=== PATIENT | male | born 2000 | race Two or more races ===

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

== ENCOUNTER 2018-04-15 18:53 | Emergency (ER) | payer OTHER ==
[2018-04-15 19:00] VITALS: BP 125/74; PULSE 86; RESP 20; TEMP 98.1
--- NOTE | 2018-04-15 19:25 | ED ---
Wound/Laceration HPI - General Chief Complaint: Wound/Laceration Stated Complaint: RT MIDDLE AND RING FINGER LAC Time Seen by Provider: 04/15/18 19:05 Source: patient, RN notes reviewed Mode of arrival: ambulatory Limitations: no limitations - History of Present Illness Initial Comments: This is a 17-year-old male who presents to the emergency department with chief complaint of right hand lacerations. Patient states that 30 minutes prior to arrival he was playing basketball. He states that he went up to dunk the basketball and held onto the rim. He states that the room then lacerated his middle finger and ring finger on the right hand. Patient states he is up-to- date with his tetanus vaccination; he received this in 2017. Patient denies any other injuries or trauma. Denies fever, chills, chest pain, shortness of breath, abdominal pain, nausea or vomiting, constipation or diarrhea, dysuria or hematuria, numbness or tingling, headache or vision changes. - Related Data Home Medications Medication Instructions Recorded Confirmed No Known Home Medications [No 04/15/18 04/15/18 Known Home Medications] Allergies Allergy/AdvReac Type Severity Reaction Status Date / Time No Known Allergies Allergy Verified 04/15/18 19:01 Review of Systems ROS Statement: Those systems with pertinent positive or pertinent negative responses have been documented in the HPI. ROS Other: All systems not noted in ROS Statement are negative. Past Medical History Past Medical History: No Reported History History of Any Multi-Drug Resistant Organisms: None Reported Past Surgical History: No Surgical Hx Reported Past Psychological History: No Psychological Hx Reported Smoking Status: Never smoker Past Alcohol Use History: None Reported Past Drug Use History: None Reported General Exam - General Exam Comments Initial Comments: General: Awake and alert, well-developed; in no apparent distress. HEENT: Head atraumatic, normocephalic. Pupils are equal, round and reactive to light. Extraocular movements intact. Oropharynx moist without erythema or exudate. Neck: Supple. Normal ROM. Cardiovascular: Regular rate and rhythm. No murmurs, rubs or gallops. Chest symmetrical. Respiratory: Lungs clear to auscultation bilaterally. No wheezes, rales or rhonchi. Normal respiratory effort with no use of accessory muscles. Musculoskeletal: Normal ROM, no tenderness bilateral upper and lower extremities. Sensation is intact. Radial pulses are 2+ equal and palpable bilaterally. Skin: [place], warm and dry. Small, superficial skin avulsion to the proximal palmar right fourth finger. Superficial flap-like avulsion laceration to the proximal palmar surface right third finger. Deep structures are intact. No active bleeding. Neurological: Alert and oriented x3. CN II-XII grossly intact. Speech is fluent and answers are appropriate. No focal neuro deficits. Psychiatric: Normal mood and affect. No overt signs of depression or anxiety noted. Limitations: no limitations Course Vital Signs 04/15/18 18:58 Temperature 98.1 F Pulse Rate 86 Respiratory 20 Rate Blood Pressure 125/74 O2 Sat by Pulse 96 Oximetry Medical Decision Making - Medical Decision Making This is a 17-year-old male who presents to the emergency department with chief complaint of lacerations to the right hand. Patient sustained a small superficial avulsion to the right fourth digit and a flap-like, superficial laceration to the right third digit. Deep structures are intact. No sutures are warranted. Patient has normal range of motion and is neurovascularly intact. Wounds were cleansed with iodine and warm water. Bandages were placed. Return parameters were discussed. Patient states he is up-to-date with tetanus vaccination. Vital signs are stable and he is in no acute distress. He will be discharged home at this time. All questions answered. Disposition Clinical Impression: Laceration Disposition: HOME SELF-CARE Condition: Good Instructions: Finger Laceration (ED) Additional Instructions: Please follow up with primary care provider within 1-2 days. Return to emergency department if symptoms should worsen or any concerns arise. Is patient prescribed a controlled substance at d/c from ED?: No Referrals: Cosmo Carpio MD [Primary Care Provider] - 1-2 days Time of Disposition: 19:26
== END 2018-04-15 19:38 | disposition home or self-care (01) ==
LOC: EC 18:53
DX: S61.212A Laceration without foreign body of right middle finger without damage to nail, initial encounter (principal); S61.214A Laceration without foreign body of right ring finger without damage to nail, initial encounter; W45.8XXA Other foreign body or object entering through skin, initial encounter; Y93.67 Activity, basketball; Y92.89 Other specified places as the place of occurrence of the external cause
CPT/HCPCS: 99282

== ENCOUNTER → 2018-08-24 | Outpatient (CLI) | payer BC, OTHER ==
--- NOTE | 2018-08-24 13:36 | US ---
EXAMINATION TYPE: US kidneys/renal and bladder DATE OF EXAM: 08/24/2018 COMPARISON: NONE CLINICAL HISTORY: Lower Back Pain M54.5. left side pain. Macroscopic hematuria. EXAM MEASUREMENTS: Right Kidney: 9.5 x 5.5 x 4.5 cm Left Kidney: 9.4 x 5.5 x 6.1 cm Right Kidney: No hydronephrosis or masses seen Left Kidney: Lower pole echogenic focus with shadow= 0.6 x 0.5 cm Bladder: mildly distended. Urinary bladder wall thickening diffusely, possibly related to incomplete distention. This is greatest posteriorly. Bilateral Jets not seen There is no evidence for hydronephrosis at this point in time. No masses are identified. The urina ry bladder is anechoic. Bilateral ureteral jets are seen. IMPRESSION: 1. Solitary nonobstructing 6 mm left lower pole renal calculus. 2. Circumferential urinary bladder wall thickening greatest posteriorly. This could relate to incompl ete distention or cystitis. Correlate with urinalysis. Given the macroscopic hematuria CT urogram cou ld also be considered.
== END | disposition home or self-care (01) ==
LOC: RADUSWWP 12:46
PROVIDERS: ATTEND Family Medicine
DX: N20.0 Calculus of kidney (principal); N32.89 Other specified disorders of bladder; M54.5 Low back pain
CPT/HCPCS: 76770

== ENCOUNTER → 2018-09-14 | Outpatient (CLI) | payer OTHER ==
--- NOTE | 2018-09-14 10:27 | US ---
EXAMINATION TYPE: US kidneys/renal and bladder DATE OF EXAM: 09/14/2018 COMPARISON: 08/24/2018 CLINICAL HISTORY: N20.0 kidney stones. EXAM MEASUREMENTS: Right Kidney: 9.3 x 4.5 x 5.1 cm Left Kidney: 9.4 x 5.5 x 4.0 cm Post Void Residual Volume: 1.1 mL Right Kidney: No hydronephrosis or masses seen Left Kidney: left calculi lower pole 0.6 cm Bladder: thick walled 0.5 cm Bilateral Jets seen: No Normal Post Void Residual: Yes There is no evidence for hydronephrosis at this point in time. No nephrolithiasis is seen. No benny s are identified. The urinary bladder is anechoic. Bilateral ureteral jets are seen. IMPRESSION: Solitary left lower pole 6 mm renal calculus is redemonstrated unchanged from the prior. No hydroneph rosis or nephrolithiasis. Again there is urinary bladder wall thickening that could relate to incompl ete distention or cystitis. Correlation with urinalysis is again recommended.
== END | disposition home or self-care (01) ==
LOC: RADUSWWP 08:50
PROVIDERS: ATTEND Family Medicine
DX: N20.0 Calculus of kidney (principal); N32.89 Other specified disorders of bladder
CPT/HCPCS: 76770

== ENCOUNTER → 2019-04-13 | Outpatient (CLI) | payer OTHER ==
--- NOTE | 2019-04-13 15:12 | US ---
EXAMINATION TYPE: US kidneys/renal and bladder DATE OF EXAM: 04/13/2019 COMPARISON: 09/14/2018 CLINICAL HISTORY: M54.5 Lower back pain. Pt states back pain, H/O renal calculi on left EXAM MEASUREMENTS: Right Kidney: 10.1 x 4.6 x 5.9 cm Left Kidney: 10.2 x 6.0 x 5.8 cm Right Kidney: No evidence of hydronephrosis, possible small calculi at mid/lower pole 3mm and 5mm in size Left Kidney: No evidence of hydronephrosis, possible 2 calculi at lower pole, 10mm and 6mm in size/ a dditional possible calculi at upper pole 3mm in size Bladder: wnl Bilateral Jets seen: No IMPRESSION: 1. Probable small bilateral renal calculi with no diagnostic evidence of hydronephrosis.
== END | disposition home or self-care (01) ==
LOC: RADUSWWP 14:29
PROVIDERS: ATTEND Family Medicine
DX: M54.5 Low back pain (principal)
CPT/HCPCS: 76770

== ENCOUNTER 2019-06-07 08:21 | Emergency (ER) | payer OTHER ==
[2019-06-07] MEDS ORDERED: ONDANSETRON 4 MG/2 ML VIAL IVP STA (08:30)
[2019-06-07] MEDS ORDERED: SODIUM CHLORIDE 0.9% 1,000 ML IV STA ×2 (08:30)
[2019-06-07] MEDS ORDERED: KETOROLAC 30 MG/ML 1 ML VIAL IVP STA (08:30)
[2019-06-07] MEDS ORDERED: MORPHINE SULFATE 4 MG/ML SYRINGE IVP STA (08:38)
--- NOTE | 2019-06-07 08:40 | ED ---
Back Pain HPI - General Chief Complaint: Back Pain/Injury Stated Complaint: Back Pain/Blood in urine Time Seen by Provider: 06/07/19 08:29 Source: patient, RN notes reviewed, old records reviewed Limitations: no limitations - History of Present Illness Initial Comments: Patient is a 18-year-old male who presents emergency department today with onset of left-sided flank pain today. Patient reports he woke up with the pain. Patient states had history of kidney stones before and feels like this is a similar kidney stone. He does report noticing some blood in his urine. Patient reports an episode of vomiting today. Denies any fevers or chills. - Related Data Previous Rx's Medication Instructions Recorded HYDROcodone/APAP 5-325MG [[place] 1 tab PO Q6HR PRN 3 Days #12 tab 06/07/19 5-325] Ketorolac [Toradol] 10 mg PO TID #15 tab 06/07/19 Ondansetron Odt [Zofran Odt] 4 mg PO Q8HR PRN #12 tab 06/07/19 Tamsulosin [Flomax] 0.4 mg PO DAILY #7 cap 06/07/19 Allergies Allergy/AdvReac Type Severity Reaction Status Date / Time No Known Allergies Allergy Verified 06/07/19 08:41 Review of Systems ROS Statement: Those systems with pertinent positive or pertinent negative responses have been documented in the HPI. ROS Other: All systems not noted in ROS Statement are negative. Past Medical History Past Medical History: No Reported History Additional Past Medical History / Comment(s): kidney stone History of Any Multi-Drug Resistant Organisms: None Reported Past Surgical History: No Surgical Hx Reported Past Psychological History: No Psychological Hx Reported Smoking Status: Never smoker Past Alcohol Use History: None Reported Past Drug Use History: None Reported General Exam - General Exam Comments Initial Comments: This is a 18-year-old male. Alert and oriented 3. No significant distress. Limitations: no limitations General appearance: alert, in no apparent distress Head exam: Present: atraumatic Eye exam: Present: normal appearance, PERRL, EOMI. Absent: scleral icterus, conjunctival injection, periorbital swelling ENT exam: Present: normal exam, mucous membranes moist Neck exam: Present: normal inspection. Absent: tenderness, meningismus, lymphadenopathy Respiratory exam: Present: normal lung sounds bilaterally. Absent: respiratory distress, wheezes, rales, rhonchi, stridor Cardiovascular Exam: Present: regular rate, normal rhythm, normal heart sounds. Absent: systolic murmur, diastolic murmur, rubs, gallop, clicks GI/Abdominal exam: Present: soft Extremities exam: Present: normal inspection, full ROM, normal capillary refill. Absent: tenderness, pedal edema, joint swelling, calf tenderness Back exam: Present: normal inspection, CVA tenderness (L) Neurological exam: Present: alert, oriented X3, CN II-XII intact Psychiatric exam: Present: normal affect, normal mood Skin exam: Present: warm, dry, intact, normal color. Absent: rash Course Vital Signs 06/07/19 08:25 Temperature 97.6 F Pulse Rate 80 Respiratory 18 Rate Blood Pressure 112/73 O2 Sat by Pulse 97 Oximetry Medical Decision Making - Medical Decision Making This is a 18-year-old male presents today for evaluation with complaints of left-sided back pain, blood in urine. Patient said history of kidney since the past and similar to this complaint. Patient has no blood cells in his urine. Blood work was reviewed and unremarkable. I reviewed patient's previous ultrasound that showed multiple bilateral stones. Large measuring 1 cm and 6 cm within the sella the left kidney. X-ray shows evidence of retained left renal stones measuring 6 elevated to 10 mm likely related from his previous ultrasounds. Patient is likely passing a small stone at this time. Discussed to avoid further imaging with known stones and patient cbe treated. Discussed the likelihood just treat the Patient with Flomax Toradol and [place] and Zofran. Patient will be discharged at this time I discussed case with Dr. Bright. - Lab Data Result diagrams: 06/07/19 08:40 06/07/19 08:40 Lab Results 06/07/19 06/07/19 06/07/19 Range/Units 08:40 08:40 08:40 WBC 6.7 (4.0-11.0) k/uL RBC 4.94 (4.30-5.90) m/uL Hgb 14.9 (13.0-17.5) gm/dL Hct 45.1 (39.0-53.0) % MCV 91.2 (80.0-100.0) fL MCH 30.1 (25.0-35.0) pg MCHC 33.0 (31.0-37.0) g/dL RDW 12.7 (11.5-15.5) % Plt Count 237 (150-450) k/uL Neutrophils % 45 % Lymphocytes % 44 % Monocytes % 6 % Eosinophils % 2 % Basophils % 0 % Neutrophils # 3.0 (1.3-7.7) k/uL Lymphocytes # 2.9 (1.0-4.8) k/uL Monocytes # 0.4 (0-1.0) k/uL Eosinophils # 0.1 (0-0.7) k/uL Basophils # 0.0 (0-0.2) k/uL PT (9.0-12.0) sec INR (<1.2) APTT (22.0-30.0) sec Sodium 144 (137-145) mmol/L Potassium 4.5 (3.5-5.1) mmol/L Chloride 105 (98-107) mmol/L Carbon Dioxide 27 (22-30) mmol/L Anion Gap 12 mmol/L BUN 17 (9-20) mg/dL Creatinine 1.11 (0.66-1.25) mg/dL Est GFR (CKD-EPI)AfAm >90 (>60 ml/min/1.73 sqM) Est GFR (CKD-EPI)NonAf >90 (>60 ml/min/1.73 sqM) Glucose 92 (74-99) mg/dL Calcium 9.7 (8.4-10.2) mg/dL Total Bilirubin 0.6 (0.2-1.3) mg/dL AST 28 (17-59) U/L ALT 32 (21-72) U/L Alkaline Phosphatase 112 (38-126) U/L Total Protein 8.2 (6.3-8.2) g/dL Albumin 4.8 (3.5-5.0) g/dL Amylase 92 (30-110) U/L Lipase 37 (23-300) U/L Urine Color Yellow Urine Appearance Clear (Clear) Urine pH 6.0 (5.0-8.0) Ur Specific [place] 1.020 (1.001-1.035) Urine Protein Negative (Negative) Urine Glucose (UA) Negative (Negative) Urine Ketones Negative (Negative) Urine Blood Small H (Negative) Urine Nitrite Negative (Negative) Urine Bilirubin Negative (Negative) Urine Urobilinogen <2.0 (<2.0) mg/dL Ur Leukocyte Esterase Negative (Negative) Urine RBC 37 H (0-5) /hpf Urine WBC 1 (0-5) /hpf Urine Mucus Rare H (None) /hpf 06/07/19 Range/Units 08:40 WBC (4.0-11.0) k/uL RBC (4.30-5.90) m/uL Hgb (13.0-17.5) gm/dL Hct (39.0-53.0) % MCV (80.0-100.0) fL MCH (25.0-35.0) pg MCHC (31.0-37.0) g/dL RDW (11.5-15.5) % Plt Count (150-450) k/uL Neutrophils % % Lymphocytes % % Monocytes % % Eosinophils % % Basophils % % Neutrophils # (1.3-7.7) k/uL Lymphocytes # (1.0-4.8) k/uL Monocytes # (0-1.0) k/uL Eosinophils # (0-0.7) k/uL Basophils # (0-0.2) k/uL PT 10.1 (9.0-12.0) sec INR 0.9 (<1.2) APTT 27.4 (22.0-30.0) sec Sodium (137-145) mmol/L Potassium (3.5-5.1) mmol/L Chloride (98-107) mmol/L Carbon Dioxide (22-30) mmol/L Anion Gap mmol/L BUN (9-20) mg/dL Creatinine (0.66-1.25) mg/dL Est GFR (CKD-EPI)AfAm (>60 ml/min/1.73 sqM) Est GFR (CKD-EPI)NonAf (>60 ml/min/1.73 sqM) Glucose (74-99) mg/dL Calcium (8.4-10.2) mg/dL Total Bilirubin (0.2-1.3) mg/dL AST (17-59) U/L ALT (21-72) U/L Alkaline Phosphatase (38-126) U/L Total Protein (6.3-8.2) g/dL Albumin (3.5-5.0) g/dL Amylase (30-110) U/L Lipase (23-300) U/L Urine Color Urine Appearance (Clear) Urine pH (5.0-8.0) Ur Specific [place] (1.001-1.035) Urine Protein (Negative) Urine Glucose (UA) (Negative) Urine Ketones (Negative) Urine Blood (Negative) Urine Nitrite (Negative) Urine Bilirubin (Negative) Urine Urobilinogen (<2.0) mg/dL Ur Leukocyte Esterase (Negative) Urine RBC (0-5) /hpf Urine WBC (0-5) /hpf Urine Mucus (None) /hpf - Radiology Data Radiology results: report reviewed Renal colliculi measuring 6 mm and 4 mm overlying the left renal shadow however no code by seen along the courses of the ureters. Moderate degree of chronic stasis overall nonobjective bowel gas pattern. Level scoliosis of the lumbar spine. Disposition Clinical Impression: Kidney stone on left side Disposition: HOME SELF-CARE Condition: Good Instructions (If sedation given, give patient instructions): Ureteral Stones (ED) Additional Instructions: Patient is to rest, increase her fluid intake. Take the medications as prescribed. Medications and to [facility] pharmacy. Return to the emergency department if any alarming signs or symptoms occur. Prescriptions: Tamsulosin [Flomax] 0.4 mg PO DAILY #7 cap HYDROcodone/APAP 5-325MG [[place] 5-325] 1 tab PO Q6HR PRN 3 Days #12 tab PRN Reason: Pain Ketorolac [Toradol] 10 mg PO TID #15 tab Ondansetron Odt [Zofran Odt] 4 mg PO Q8HR PRN #12 tab PRN Reason: Nausea Is patient prescribed a controlled substance at d/c from ED?: Yes If prescribed controlled substance>3 days was MAPS reviewed?: Prescribed <3 Days If opioid is for acute pain is fill amount 7 days or less?: Yes If Rx opioid, was Start Talking consent form obtained?: Yes Referrals: Cosmo Carpio MD [Primary Care Provider] - 1-2 days Time of Disposition: 09:28
--- NOTE | 2019-06-07 08:53 | XR ---
EXAMINATION TYPE: XR KUB DATE OF EXAM: 06/07/2019 8:44 AM CLINICAL HISTORY: Flank pain with history of left-sided nephrolithiasis TECHNIQUE: Single upright image of the abdomen is obtained. COMPARISON: 12/23/2007 FINDINGS: There are 6 mm and 4 mm calculi overlying the left renal shadow. There is a levoscoliosis o f the lumbar spine. No suspicious calcifications are seen within the medial abdomen overlying the cou rses of the ureters or the psoas musculature. Lung bases are well aerated. Moderate degree colonic fe mila stasis. Osseous structures are grossly intact. No pneumoperitoneum seen. IMPRESSION: 1. Renal calculi measuring 6 mm and 4 mm overlying the left renal shadow however no calculi are seen along the courses of the ureters. 2. Moderate degree colonic fecal stasis in an overall nonobstructive bowel gas pattern. 3. Levoscoliosis of the lumbar spine.
[2019-06-07 08:57] LABS: Basophils % (A) 0 %; Eosinophils # (A) 0.1 k/uL (0-0.7); Eosinophils % (A) 2 %; HCT 45.1 % (39.0-53.0); HGB 14.9 gm/dL (13.0-17.5); Lymphocytes # (A) 2.9 k/uL (1.0-4.8); Lymphocytes % (A) 44 %; MCH 30.1 pg (25.0-35.0); MCV 91.2 fL (80.0-100.0); Mean Platelet Volume 7.1; Monocytes # (A) 0.4 k/uL (0-1.0); Monocytes % (A) 6 %; Neutrophils % (A) 45 %; Platelet Count 237 k/uL (150-450); RBC 4.94 m/uL (4.30-5.90); RDW 12.7 % (11.5-15.5); WBC 6.7 k/uL (4.0-11.0)
[2019-06-07 09:09] LABS: ALT 32 U/L (21-72); AST 28 U/L (17-59); African American GFR (CKD) >90 (>60 ml/min/1.73 sqM); Albumin 4.8 g/dL (3.5-5.0); Alkaline Phosphatase 112 U/L (38-126); Amylase 92 U/L (30-110); Anion Gap 12 mmol/L; Blood Urea Nitrogen 17 mg/dL (9-20); Calcium 9.7 mg/dL (8.4-10.2); Carbon Dioxide 27 mmol/L (22-30); Chloride 105 mmol/L (98-107); Glucose 92 mg/dL (74-99); Potassium 4.5 mmol/L (3.5-5.1); Sodium 144 mmol/L (137-145); Total Bilirubin 0.6 mg/dL (0.2-1.3); Total Protein 8.2 g/dL (6.3-8.2)
[2019-06-07 09:13] LABS: INR 0.9 (<1.2); Partial Thromboplastin Time 27.4 sec (22.0-30.0); Prothrombin Time 10.1 sec (9.0-12.0)
[2019-06-07 09:17] LABS: Appearance,Urine Clear (Clear); Bilirubin,Urine Negative (Negative); Blood,Urine Small (Negative); Color,Urine Yellow; Glucose,Urine (UA) Negative (Negative); Ketones,Urine Negative (Negative); Leukocyte Esterase,Urine Negative (Negative); Mucus,Urine Rare /hpf; Nitrite,Urine Negative (Negative); Protein,Urine Negative (Negative); RBC,Urine 37 /hpf (0-5); Urobilinogen,Urine <2.0 mg/dL (<2.0); WBC,Urine 1 /hpf (0-5)
[2019-06-07 09:43] VITALS: BP 136/74; PULSE 74; RESP 16; TEMP 98
== END 2019-06-07 09:40 | disposition home or self-care (01) ==
LOC: EC 08:21
DX: N20.0 Calculus of kidney (principal)
CPT/HCPCS: 36415; 80053; 82150; 83690; 85025; 85610; 85730; 81001; 87086; 74018; 99284; 96374; 96375 ×2; 96361; J2270; J2405; J1885

== ENCOUNTER → 2019-07-08 | Outpatient (CLI) | payer OTHER ==
[2019-07-08 15:34] LABS: Basophils % (A) 1 %; Eosinophils # (A) 0.1 k/uL (0-0.7); Eosinophils % (A) 1 %; HCT 41.7 % (39.0-53.0); HGB 13.9 gm/dL (13.0-17.5); Lymphocytes # (A) 2.3 k/uL (1.0-4.8); Lymphocytes % (A) 29 %; MCH 30.1 pg (25.0-35.0); MCHC 33.3 g/dL (31.0-37.0); MCV 90.4 fL (80.0-100.0); Mean Platelet Volume 7.3; Monocytes # (A) 0.5 k/uL (0-1.0); Monocytes % (A) 6 %; Neutrophils # (A) 4.7 k/uL (1.3-7.7); Neutrophils % (A) 61 %; Platelet Count 228 k/uL (150-450); RBC 4.61 m/uL (4.30-5.90); RDW 14.3 % (11.5-15.5); WBC 7.7 k/uL (4.0-11.0)
[2019-07-08 15:52] LABS: African American GFR (CKD) >90 (>60 ml/min/1.73 sqM); Blood Urea Nitrogen 17 mg/dL (9-20); Non-African American GFR(CKD) >90 (>60 ml/min/1.73 sqM)
== END | disposition home or self-care (01) ==
LOC: LABPAT 14:36
PROVIDERS: ATTEND Urology
DX: Z01.812 Encounter for preprocedural laboratory examination (principal); N20.0 Calculus of kidney
CPT/HCPCS: 36415; 82565; 84520; 85025

== ENCOUNTER 2019-07-11 10:16 | Day surgery (SDC) | payer OTHER ==
--- NOTE | 2019-07-10 11:16 | P.GSHP ---
History of Present Illness H&P Date: 07/10/19 Chief Complaint: Left flank pain secondary to left renal calculi The patient is a 18-year-old male with a history of intermittent left flank pain and gross hematuria for over one year. Renal ultrasound in 08/12 and again in 09/12 suggested nonobstructive calculi in the lower pole of the left kidney. Renal ultrasound in 04/13 showed at least 2 calculi in the lower pole of the left kidney. KUB on 06/07/2019 showed a 3-4 mm calculus and a 6-7 mm calculus in the lower pole. The patient continues to have intermittent left flank pain and gross hematuria. He was seen by me on 07/08. I reviewed his radiographic studies with him and discussed treatment options for his left renal calculi. I reviewed further observation, ureteroscopy with lithotripsty and ESWL The patient wishes to proceed with ESWL treatment. Patient has never actually passed a calculus. He has no history of urinary tract infection. There is no family history of urolithiasis. - Constitutional Constitutional: Denies chills, Denies fever - Cardiovascular Cardiovascular: Denies rapid heart beat, Denies shortness of breath - Respiratory Respiratory: Denies cough, Denies wheezing - Gastrointestinal Gastrointestinal: Reports as per HPI, Denies constipation - Genitourinary (Male) Genitourinary: Reports as per HPI Past Medical History Past Medical History: No Reported History Additional Past Medical History / Comment(s): kidney stone History of Any Multi-Drug Resistant Organisms: None Reported Past Surgical History: No Surgical Hx Reported Past Psychological History: No Psychological Hx Reported Smoking Status: Never smoker Past Alcohol Use History: None Reported Past Drug Use History: None Reported Medications and Allergies Home Medications Medication Instructions Recorded Confirmed Type HYDROcodone/APAP 5-325MG [[place] 1 tab PO Q6HR PRN 3 Days #12 tab 06/07/19 Rx 5-325] Ketorolac [Toradol] 10 mg PO TID #15 tab 06/07/19 Rx Ondansetron Odt [Zofran Odt] 4 mg PO Q8HR PRN #12 tab 06/07/19 Rx Tamsulosin [Flomax] 0.4 mg PO DAILY #7 cap 06/07/19 Rx Allergies Allergy/AdvReac Type Severity Reaction Status Date / Time No Known Allergies Allergy Verified 06/07/19 08:41 Surgical - Exam - General well developed, well nourished, no distress - ENT no hearing loss - Neck no masses, no lymphadectomy - Respiratory clear to auscultation - Cardiovascular Rhythm: regular Abnormal Heart Sounds: no systolic murmur, no diastolic murmur - Abdomen Abdomen: soft, non tender, no organomegaly - Genitourinary normal penis with no external lesions, testicles non-tender Assessment and Plan (1) Renal calculus, left Narrative/Plan: The patient will undergo ESWL treatment of his left renal calculi performed by Dr. Tapia. He is aware of the operative risks which include anesthesia, intrarenal or perinephric bleeding, inability to fragment the calculi, ureteral obstruction secondary to a calculus fragment and persistent calculi fragments in the lower pole the kidney despite successful fragmentation. Status: Acute Code(s): N20.0 - CALCULUS OF KIDNEY SNOMED Code(s): 40223107
[~2019-07-11 10:16] MED LIST: LACTATED RINGERS 1,000 ML IV SCH; LIDOCAINE 1% 20 ML VIAL (10MG/ML) FOR IV START INTRADERMA PRN; Pre Op ABX Message 1 EACH MISC MISCELLANE ONE
[2019-07-11 10:49] VITALS: RESP 16
[2019-07-11 11:14] VITALS: BMI 26.6
--- NOTE | 2019-07-11 11:14 | XR ---
EXAMINATION TYPE: XR KUB DATE OF EXAM: 07/11/2019 CLINICAL DATA: 18-year-old male preoperative for lithotripsy, [facility] COMPARISON: 06/07/2019 FINDINGS: Nonobstructive bowel gas pattern. Mild overall stool burden. Phlebolith left hemipelvis. Redemonstrat ed 2 calcifications left mid abdomen measuring 8 mm and 4 mm. IMPRESSION: Left-sided nephrolithiasis measuring 8 mm and 4 mm. Calcification in the left side of the pelvis like ly represents a phlebolith.
[2019-07-11] MEDS ORDERED: PROPOFOL 10 MG/ML 20 ML VIAL IV ONE (12:30)
[2019-07-11] MEDS ORDERED: MIDAZOLAM 2 MG/2 ML VIAL ONE (12:30)
[2019-07-11] MEDS ORDERED: fentaNYL (PF) 50 MCG/ML 2 ML AMP ONE (12:30)
--- NOTE | 2019-07-11 13:11 | P.OP ---
Date of Procedure: 07/11/19 Preoperative Diagnosis: Left renal calculi Postoperative Diagnosis: Same Procedure(s) Performed: Left extracorporeal shockwave lithotripsy (ESWL) Anesthesia: TRAVIS Surgeon: Geraldo Tapia Estimated Blood Loss (ml): 0 IV fluids (ml): 400 Pathology: none sent Condition: stable Disposition: PACU Indications for Procedure: The patient is a 18-year-old male with a history of intermittent left flank pain and gross hematuria for over one year. Renal ultrasound in fall 2017 suggested non-obstructive calculi in the lower pole of the left kidney. Renal ultrasound in March 2019 showed at least 2 calculi in the lower pole of the left kidney. KUB on 06/07/2019 showed a 3-4 mm calculus and a 6-7 mm calculus in the lower pole. The patient continues to have intermittent left flank pain and gross hematuria. Alternative treatment options for his left renal calculi were reviewed with him, including continued observation, ureteroscopy with lithotripsty, and ESWL The patient wishes to proceed with ESWL treatment. Patient has never actually passed a calculus. He has no history of urinary tract infection. There is no family history of urolithiasis. Preoperative KUB x-ray reveals 2 left lower pole renal calculi, measuring 4 and 8 mm. Operative Findings: Excellent fragmentation of both calculi. Description of Procedure: The patient was taken to the operating room and placed on the Dornier Compact Delta II lithotripter in the supine position. The calculi were seen on biplanar fluoroscopy. Once the patient was properly positioned and sedated, lithotripsy was performed. The energy level was gradually increased per protocol, to an energy level of 5. After 200 shocks were administered, a 2 minute pause was instituted per protocol. After fragmenting the larger of the 2 calculi, the patient was repositioned and the smaller calculus was treated. A total of 1500 shocks were given at a rate of 80 shocks per minute. Fluoroscopy was utilized at a minimum to ensure proper positioning and determine the treatment status. The calculi were no longer seen at the completion of the procedure, consistent with fragmentation. The patient tolerated the procedure well was taken to the recovery room in stable condition. Instructions were given to strain the urine, and the patient will follow-up within one week.
[2019-07-11 13:37] VITALS: TEMP 97.1
[2019-07-11 14:37] VITALS: BP 124/64; PULSE 75
== END 2019-07-11 15:10 | disposition home or self-care (01) ==
LOC: ORWHC2ENDO 10:16
PROVIDERS: ATTEND Urology
DX: N20.0 Calculus of kidney (principal); Z79.891 Long term (current) use of opiate analgesic; Z79.899 Other long term (current) drug therapy
CPT/HCPCS: 74018; 50590; J2250; J3010; J2704

== ENCOUNTER → 2020-05-31 | Outpatient (CLI) | payer OTHER ==
--- NOTE | 2020-05-31 09:57 | MR ---
EXAMINATION TYPE: MR brain wo/w con DATE OF EXAM: 05/31/2020 COMPARISON: None HISTORY: Left arm shaking, Numbness lasted about a week. TECHNIQUE: Multiplanar, multisequence images of the brain and brainstem is performed without and with IV contras t, utilizing 9.5 mL intravenous Gadavist . FINDINGS: Diffusion weighted images demonstrate no evidence of a recent infarct or other diffusion ab normality. There is no extra-axial fluid collection or significant white matter signal abnormality. The ventricular system and cisternal spaces are normal in size and appearance. The brain volume is age appropriate. Midline structures demonstrate normal morphology. The craniocervical junction appears within normal limits. Post contrast images demonstrate no abnormal enhancement. The dural venous sinuses appear pa tent. Changes of chronic mastoiditis and sinusitis noted with nasal septal deviation. Orbits are symmetric in appearance. Nodular prominence the right MCA trifurcation. IMPRESSION: 1. No acute process. There is nodular prominence of the right MCA trifurcation/MRA [place] of [place] r ecommended. 2. Changes of chronic sinusitis. Intermediate signal involving the mastoid region bilaterally could b e on the basis of chronic mastoiditis. CT of the head with bone windows recommended for further asses sment.
== END | disposition home or self-care (01) ==
LOC: RADMRIMAIN 08:12
PROVIDERS: ATTEND Family Medicine
DX: J32.9 Chronic sinusitis, unspecified (principal)
CPT/HCPCS: 70553; A9585

== ENCOUNTER 2020-10-28 21:13 | Emergency (ER) | payer OTHER ==
[2020-10-28 21:19] VITALS: BP 107/66; PULSE 87; RESP 18; TEMP 98.4
[2020-10-28] MEDS ORDERED: KETOROLAC 15 MG/ML 1 ML VIAL IVP STA (21:31)
--- NOTE | 2020-10-28 22:05 | CT ---
EXAMINATION TYPE: CT abdomen pelvis wo con DATE OF EXAM: 10/28/2020 COMPARISON: None HISTORY: flank pain, hx of stones. CT DLP: 626.9 mGycm Automated exposure control for dose reduction was used. Images obtained from the diaphragm to the floor the pelvis without contrast. FINDINGS: Lung bases are clear. There is no pleural effusion. Heart size is normal. There is no pericardial eff usion. Liver spleen pancreas stomach gallbladder appear normal. Bile ducts are not dilated. There is no adrenal mass. There are numerous bilateral small renal calculi that measure up to 3 mm. T he ureters are not dilated. There is no hydronephrosis. There is no retroperitoneal adenopathy. Bladd er distends smoothly. There is no inguinal hernia. There is no free fluid in the pelvis. There is no mesenteric edema. There is no ascites or free air. There is no bowel obstruction. There i s no evidence of thickened appendix. The lumbar vertebra have normal alignment. Posterior elements are intact. Disc spaces are fairly norm al. There is no compression fracture. Bony pelvis is intact. Appendix is not seen. There is no sign o f thickened appendix. IMPRESSION: Multiple bilateral small renal nonobstructing calculi. Appendix not definitely seen. No sign of thickened appendix.
[2020-10-28 22:08] LABS: Basophils # (A) 0.1 k/uL (0-0.2); Basophils % (A) 1 %; Eosinophils % (A) 1 %; HCT 42.6 % (39.0-53.0); HGB 14.6 gm/dL (13.0-17.5); Lymphocytes # (A) 1.6 k/uL (1.0-4.8); Lymphocytes % (A) 27 %; MCH 30.2 pg (25.0-35.0); MCHC 34.2 g/dL (31.0-37.0); MCV 88.4 fL (80.0-100.0); Mean Platelet Volume 7.5; Monocytes # (A) 0.4 k/uL (0-1.0); Monocytes % (A) 7 %; Neutrophils # (A) 3.8 k/uL (1.3-7.7); Neutrophils % (A) 64 %; Platelet Count 234 k/uL (150-450); RBC 4.82 m/uL (4.30-5.90); RDW 11.9 % (11.5-15.5)
[2020-10-28] MEDS ORDERED: HYDROcodone/APAP 5-325MG 1 EACH TAB PO STA (22:14)
--- NOTE | 2020-10-28 22:15 | ED ---
Abdominal Pain HPI - General Chief Complaint: Abdominal Pain Stated Complaint: Kidney Pain Time Seen by Provider: 10/28/20 21:21 Source: patient Mode of arrival: ambulatory Limitations: no limitations - History of Present Illness Initial Comments: Is a 19-year-old male with a history of kidney stones presents emergency department for bilateral flank pain worse on the left. He states is been going on for last couple of days. States it waxes and wanes in intensity. Seems to be worse on the left side. Has no radiation of pain. Denies any dysuria or hematuria. Denies any midline back pain. No trouble breathing or chest pain. No nausea, vomiting, or diarrhea. Patient states that it feels worse than previous kidney stones. Denies any other complaints at this time. - Related Data Previous Rx's Medication Instructions Recorded HYDROcodone/APAP 5-325MG [[place] 1 tab PO Q6HR PRN #8 tab 10/28/20 5-325] Allergies Allergy/AdvReac Type Severity Reaction Status Date / Time No Known Allergies Allergy Verified 10/28/20 22:05 Review of Systems ROS Statement: Those systems with pertinent positive or pertinent negative responses have been documented in the HPI. ROS Other: All systems not noted in ROS Statement are negative. Past Medical History Past Medical History: No Reported History Additional Past Medical History / Comment(s): kidney stone History of Any Multi-Drug Resistant Organisms: None Reported Past Surgical History: No Surgical Hx Reported Past Psychological History: No Psychological Hx Reported Smoking Status: Never smoker Past Alcohol Use History: Occasional Past Drug Use History: None Reported - Past Family History Mother Family Medical History: No Reported History Father Family Medical History: No Reported History General Exam - General Exam Comments Initial Comments: Constitutional: Awake alert Appears comfortable Head: Normocephalic atraumatic Eyes: no conjunctival injection No scleral icterus EOMI Neck: No JVD Supple Heart: Regular rate rhythm normal S1-S2 no murmurs Lungs: Clear to auscultation bilaterally No wheezing No rales Abdomen: Soft nondistended nontender, there is no obvious left-sided CVA tenderness. Extremities: Non edematous DP pulses intact Radial pulses intact Neuro: A&Ox3 No focal neurologic deficits Psych: Appropriate mood and affect Limitations: no limitations Course Vital Signs 10/28/20 21:16 Temperature 98.4 F Pulse Rate 87 Respiratory 18 Rate Blood Pressure 107/66 O2 Sat by Pulse 97 Oximetry Medical Decision Making - Medical Decision Making Is a 19-year-old male who presented for bilateral flank pain. The patient is CT of his abdomen performed that did not show any evidence for passing kidney stones. The patient does have multiple kidney stones within the kidneys bilaterally. Urinalysis was revealed to be unremarkable. Blood work also unremarkable. The patient was given Toradol and [place] with improvement in his pain. On chart review it does appear the patient had to have shock wave lithotripsy in the past due to the presence of renal calculi even though he is not past any stones. Advised him to follow-up with Dr. Angelo regarding his pain. Return emergency Department if he has worsening or changing symptoms. All questions were answered. - Lab Data Result diagrams: 10/28/20 21:44 10/28/20 21:44 Lab Results 10/28/20 10/28/20 10/28/20 Range/Units 21:30 21:44 21:44 WBC 6.0 (3.8-10.6) k/uL RBC 4.82 (4.30-5.90) m/uL Hgb 14.6 (13.0-17.5) gm/dL Hct 42.6 (39.0-53.0) % MCV 88.4 (80.0-100.0) fL MCH 30.2 (25.0-35.0) pg MCHC 34.2 (31.0-37.0) g/dL RDW 11.9 (11.5-15.5) % Plt Count 234 (150-450) k/uL MPV 7.5 Neutrophils % 64 % Lymphocytes % 27 % Monocytes % 7 % Eosinophils % 1 % Basophils % 1 % Neutrophils # 3.8 (1.3-7.7) k/uL Lymphocytes # 1.6 (1.0-4.8) k/uL Monocytes # 0.4 (0-1.0) k/uL Eosinophils # 0.0 (0-0.7) k/uL Basophils # 0.1 (0-0.2) k/uL Sodium 138 (137-145) mmol/L Potassium 4.4 (3.5-5.1) mmol/L Chloride 107 (98-107) mmol/L Carbon Dioxide 26 (22-30) mmol/L Anion Gap 5 mmol/L BUN 13 (9-20) mg/dL Creatinine 0.90 (0.66-1.25) mg/dL Est GFR (CKD-EPI)AfAm >90 (>60 ml/min/1.73 sqM) Est GFR (CKD-EPI)NonAf >90 (>60 ml/min/1.73 sqM) Glucose 115 H (74-99) mg/dL Calcium 9.4 (8.4-10.2) mg/dL Urine Color Yellow Urine Appearance Clear (Clear) Urine pH 7.0 (5.0-8.0) Ur Specific [place] 1.020 (1.001-1.035) Urine Protein Negative (Negative) Urine Glucose (UA) Negative (Negative) Urine Ketones Negative (Negative) Urine Blood Negative (Negative) Urine Nitrite Negative (Negative) Urine Bilirubin Negative (Negative) Urine Urobilinogen <2.0 (<2.0) mg/dL Ur Leukocyte Esterase Negative (Negative) Disposition Clinical Impression: Flank pain Disposition: HOME SELF-CARE Condition: Stable Instructions (If sedation given, give patient instructions): Flank Pain (ED) Prescriptions: HYDROcodone/APAP 5-325MG [[place] 5-325] 1 tab PO Q6HR PRN #8 tab PRN Reason: pain Is patient prescribed a controlled substance at d/c from ED?: Yes If prescribed controlled substance>3 days was MAPS reviewed?: Prescribed <3 Days Referrals: Cosmo Carpio MD [Primary Care Provider] - 1-2 days Geraldo Tapia MD [STAFF PHYSICIAN] - 1-2 days
[2020-10-28 22:16] LABS: African American GFR (CKD) >90 (>60 ml/min/1.73 sqM); Anion Gap 5 mmol/L; Blood Urea Nitrogen 13 mg/dL (9-20); Calcium 9.4 mg/dL (8.4-10.2); Carbon Dioxide 26 mmol/L (22-30); Chloride 107 mmol/L (98-107); Glucose 115 mg/dL (74-99); Non-African American GFR(CKD) >90 (>60 ml/min/1.73 sqM); Potassium 4.4 mmol/L (3.5-5.1); Sodium 138 mmol/L (137-145)
[2020-10-28 22:36] LABS: Appearance,Urine Clear (Clear); Bilirubin,Urine Negative (Negative); Blood,Urine Negative (Negative); Color,Urine Yellow; Glucose,Urine (UA) Negative (Negative); Ketones,Urine Negative (Negative); Leukocyte Esterase,Urine Negative (Negative); Nitrite,Urine Negative (Negative); Protein,Urine Negative (Negative); Urobilinogen,Urine <2.0 mg/dL (<2.0)
== END 2020-10-28 22:59 | disposition home or self-care (01) ==
LOC: EC 21:13
DX: N20.0 Calculus of kidney (principal)
CPT/HCPCS: 36415; 80048; 85025; 81003; 74176; 99284; 96374; J1885

== ENCOUNTER → 2022-04-25 | Outpatient (CLI) | payer OTHER ==
--- NOTE | 2022-04-25 12:29 | XR ---
EXAMINATION TYPE: XR shoulder complete LT DATE OF EXAM: 04/25/2022 COMPARISON: NONE HISTORY: Pain TECHNIQUE: Shoulder examined in 3 projections FINDINGS: The humeral head articulates with the glenoid. The acromio-clavicular junction is normal. No acute fractures or dislocations are evident. A follow up study can be performed 7-10 days from acute trauma for continued pain. IMPRESSION: 1. No acute osseous abnormality left shoulder
== END | disposition home or self-care (01) ==
LOC: RADXRMAIN 12:13
PROVIDERS: ATTEND Emergency Medicine
DX: M25.512 Pain in left shoulder (principal)

== ENCOUNTER → 2022-05-29 | Outpatient (CLI) | payer OTHER ==
--- NOTE | 2022-05-30 04:53 | MR ---
EXAMINATION TYPE: MR shoulder LT wo con DATE OF EXAM: 05/29/2022 COMPARISON: None HISTORY: Left shoulder pain, decreased ROM. Multiplanar multiecho imaging of the left shoulder with no contrast. The biceps tendon is intact. The subscapularis tendon is intact. The supraspinatus tendon is intact. No retraction. The infraspinatus tendon is intact. No evidence of a fracture. Scapula is intact. AC j oint is intact. There are small shoulder joint effusion. IMPRESSION: No evidence of rotator cuff tear. Small joint effusion suggestive of minimal synovitis. No fracture. No evidence of ligament or tendon tear.
== END | disposition home or self-care (01) ==
LOC: RADMRIMAIN 17:24
PROVIDERS: ATTEND Emergency Medicine
DX: S46.012D Strain of muscle(s) and tendon(s) of the rotator cuff of left shoulder, subsequent encounter (principal)

== ENCOUNTER 2025-03-31 13:29 | Emergency (ER) | payer OTHER ==
--- NOTE | 2025-03-31 14:35 | ED ---
Skin/Abscess/FB HPI - General Chief complaint: Skin/Abscess/Foreign Body Stated complaint: IHS-R hand lac Time Seen by Provider: 03/31/25 13:44 Source: patient, RN notes reviewed Mode of arrival: ambulatory Limitations: no limitations - History of Present Illness Initial comments: This is a 24-year-old male presenting for metal wire through his right index finger occurring at 1140 while at work.. Patient states he was wearing gloves while working with metal at the time, stating it went through both his glove and his finger. Patient states his tetanus vaccination status is up-to-date. Denies other injuries. MD complaint: foreign body Time: 11:40 Tetanus Up to Date: yes Location: R hand Severity: moderate - Related Data Previous Rx's Medication Instructions Recorded HYDROcodone/APAP 5-325MG [[place] 1 tab PO Q6HR PRN #8 tab 10/28/20 5-325] Cephalexin [Keflex] 500 mg PO Q6HR 1 Days #20 cap 03/31/25 Allergies Allergy/AdvReac Type Severity Reaction Status Date / Time No Known Allergies Allergy Verified 03/31/25 13:41 Review of Systems ROS Statement: Those systems with pertinent positive or pertinent negative responses have been documented in the HPI. ROS Other: All systems not noted in ROS Statement are negative. Past Medical History Past Medical History: No Reported History Additional Past Medical History / Comment(s): kidney stone History of Any Multi-Drug Resistant Organisms: None Reported Past Surgical History: No Surgical Hx Reported Past Psychological History: No Psychological Hx Reported Smoking Status: Never smoker Past Alcohol Use History: Occasional Past Drug Use History: None Reported - Past Family History Mother Family Medical History: No Reported History Father Family Medical History: No Reported History General Exam Limitations: no limitations General appearance: alert, in no apparent distress Head exam: Present: atraumatic, normocephalic, normal inspection Eye exam: Present: normal appearance, PERRL, EOMI. Absent: scleral icterus, conjunctival injection, periorbital swelling ENT exam: Present: normal exam, mucous membranes moist Neck exam: Present: normal inspection. Absent: tenderness, meningismus, lymphadenopathy Respiratory exam: Present: normal lung sounds bilaterally. Absent: respiratory distress, wheezes, rales, rhonchi, stridor Cardiovascular Exam: Present: regular rate, normal rhythm, normal heart sounds. Absent: systolic murmur, diastolic murmur, rubs, gallop, clicks GI/Abdominal exam: Present: soft, normal bowel sounds. Absent: distended, tenderness, guarding, rebound, rigid Extremities exam: Present: full ROM, tenderness, normal capillary refill, other (Wire-like metal strand entering from palmar right index finger distal phalanx and exiting from radial aspect. Hand is gloved. No obvious bleeding or other injuries to remainder of hand/fingers). Absent: pedal edema, joint swelling, calf tenderness Back exam: Present: normal inspection Neurological exam: Present: alert, oriented X3, CN II-XII intact Psychiatric exam: Present: normal affect, normal mood Skin exam: Present: warm, dry, intact, normal color. Absent: rash Course Vital Signs 03/31/25 03/31/25 13:37 16:54 Temperature 97.9 F 98 F Pulse Rate 82 80 Respiratory 18 16 Rate Blood Pressure 136/93 130/87 O2 Sat by Pulse 100 100 Oximetry Procedures - Forgein Body Removal Soft Tissue Consent Obtained: verbal consent Site: hand Anesthetic Used: lidocaine 1% Amount (mLs): 3 Foreign Body Suspected: Metal Foreign Body Removed: yes Foreign Body Removal Technique: Forceps Patient Tolerated Procedure: well, no complications Medical Decision Making - Medical Decision Making Was pt. sent in by a medical professional or institution ([facility] Flowers, [employer]S CATALOGUER, urgent care, hospital, or half-way...) When possible be specific @ -No Did you speak to anyone other than the patient for history (EMS, parent, family, police, friend...)? What history was obtained from this source @ -No Did you review nursing and triage notes (agree or disagree)? Why? @ -I reviewed and agree with nursing and triage notes Were old charts reviewed (outside hosp., previous admission, EMS record, old EKG, old radiological studies, urgent care reports/EKG's, half-way records)? Report findings @ -No old charts were reviewed Differential Diagnosis (chest pain, altered mental status, abdominal pain women, abdominal pain men, vaginal bleeding, weakness, fever, dyspnea, syncope, headache, dizziness, GI bleed, back pain, seizure, CVA, palpatations, mental health, musculoskeletal)? @ -Differential Musculoskeletal Muscular strain, contusion, ligament sprain, fracture, arthritis, septic arthritis, bursitis, cellulitis, muscle spasm, nerve compression, DVT, arterial occlusion, herpes zoster, electrolyte abnormality, tumor.... This is not meant to be in all inclusive list EKG interpreted by me (3pts min.). @ -Not done X-rays interpreted by me (1pt min.). @ -Initial finger x-ray shows metallic wire through distal portion of index finger with second wire external to the digit also noted. Repeat finger x-ray shows no radiopaque foreign body retained in finger following removal. CT interpreted by me (1pt min.). @ -None done U/S interpreted by me (1pt. min.). @ -None done What testing was considered but not performed or refused? (CT, X-rays, U/S, labs)? Why? @ -None What meds were considered but not given or refused? Why? @ -None Did you discuss the management of the patient with other professionals (professionals i.e. , PA, PARTS CATALOGUER, lab, RT, psych nurse, social media campaign manager, economic geographer, teacher, v/stol landing signal officer, housing case manager)? Give summary @ -No Was smoking cessation discussed for >3mins.? @ -No Was critical care preformed (if so, how long)? @ -No Were there social determinants of health that impacted care today? How? (Homelessness, low income, unemployed, alcoholism, drug addiction, transportation, low edu. Level, literacy, decrease access to med. care, [facility], rehab)? @ -No Was there de-escalation of care discussed even if they declined (Discuss DNR or withdrawal of care, Hospice)? DNR status @ -No What co-morbidities impacted this encounter? (DM, HTN, Smoking, COPD, CAD, Cancer, CVA, ARF, Chemo, Hep., AIDS, mental health diagnosis, sleep apnea, morbid obesity)? @ -None Was patient admitted / discharged? Hospital course, mention meds given and route, prescriptions, significant lab abnormalities, going to OR and other pertinent info. @ -Patient initially provided p.o. Tylenol, Motrin for pain. Initial finger x- ray shows metallic wire through distal portion of index finger with second wire external to the digit also noted. Digital block performed on finger with patient noting complete anesthesia prior to removal. Tweezers used to successfully remove wire from finger. Repeat finger x-ray shows no radiopaque foreign body retained in finger following removal. Patient provided initial dose of p.o. Keflex with remaining prophylactic Keflex regimen sent to patient's pharmacy. Advised to keep the puncture site clean with antibacterial soap and water, antibiotic ointment and dressing change at least twice daily. Discussed patient with Dr. Bright. Undiagnosed new problem with uncertain prognosis? @ -No Drug Therapy requiring intensive monitoring for toxicity (Heparin, Nitro, Insulin, Cardizem)? @ -No Were any procedures done? @ -Metal wire removed from finger following digital block. Diagnosis/symptom? @ -Metal foreign body through finger Acute, or Chronic, or Acute on Chronic? @ -Acute Uncomplicated (without systemic symptoms) or Complicated (systemic symptoms)? @ -Uncomplicated Side effects of treatment? @ -No Exacerbation, Progression, or Severe Exacerbation? @ -No Poses a threat to life or bodily function? How? (Chest pain, [place], MD, pneumonia, PE, COPD, DKA, ARF, appy, cholecystitis, CVA, Diverticulitis, Homicidal, Suicidal, threat to staff... and all critical care pts) @ -No Disposition Clinical Impression: Metal foreign body in finger Disposition: HOME SELF-CARE Condition: Good Instructions (If sedation given, give patient instructions): Puncture Wound (ED) Additional Instructions: Keep puncture site clean with antibacterial soap and water with dressing change at least twice daily. Prescriptions: Cephalexin [Keflex] 500 mg PO Q6HR 1 Days #20 cap Is patient prescribed a controlled substance at d/c from ED?: No Referrals: Cosmo Carpio MD [Primary Care Provider] - 1-2 days Time of Disposition: 16:46
[2025-03-31] MEDS: ACETAMINOPHEN TAB 500 MG TAB PO STA (14:37)
[2025-03-31] MEDS: IBUPROFEN 800 MG TAB PO STA (14:38)
[2025-03-31] MEDS: LIDOCAINE 1% INJ 10MG/ML (20 ML MDV) SQ ONE (15:21)
--- NOTE | 2025-03-31 15:48 | XR ---
EXAMINATION TYPE: XR finger RT DATE OF EXAM: 03/31/2025 3:16 PM COMPARISON: None. CLINICAL INDICATION: Male, 24 years old with history of Metal through right index finger distal phala nge, pain TECHNIQUE: 3 view(s) obtained. FINDINGS: There is metal within the distal index finger. This appears to transverse the proximal portion distal phalanx. There is a second metallic wire which is curvilinear. On the lateral projection this is justino wn to be external to the patient and may be within the bandage. No fractures are identified. IMPRESSION: 1. There is a metallic wire within the distal portion of the index finger. Given the positioning paulie nge between different views, this may be adjacent to, rather than within, the osseous phalanx. 2. A second wire is external to the digit. [facility], , 03/31/2025 3:45 PM
--- NOTE | 2025-03-31 16:40 | XR ---
EXAMINATION TYPE: XR finger RT DATE OF EXAM: 03/31/2025 4:36 PM COMPARISON: None. CLINICAL INDICATION: Male, 24 years old with history of post FB removal, pain TECHNIQUE: 3 view(s) obtained. FINDINGS: 3 views of the index finger are obtained. No acute fracture or dislocation is evident. No puncture wo und is identified. Previous 2 metallic wires are not present on the current exam. IMPRESSION: 1. No acute osseous abnormality. 2. Previous radiopaque foreign bodies are absent on the current exam [facility], , 03/31/2025 4:38 PM
[2025-03-31] MEDS: CEPHALEXIN 500 MG CAP PO STA (16:51)
[2025-03-31 16:56] VITALS: BP 130/87; PULSE 80; RESP 16; TEMP 98
== END 2025-03-31 16:57 | disposition home or self-care (01) ==
LOC: EC 13:29
DX: S60.450A Superficial foreign body of right index finger, initial encounter (principal); W45.8XXA Other foreign body or object entering through skin, initial encounter
CPT/HCPCS: 73140; 99283; 10120; J2003